=== PATIENT | female | born 1985 | race Caucasian/White ===

== ENCOUNTER 2019-10-07 08:20 | Emergency (ER) | payer OTHER ==
[~2019-10-07] VITALS: Ht 167.6 cm; Wt 157.4 kg
[2019-10-07] MEDS ORDERED: METFORMIN HCL500 MG PO (08:33)
[2019-10-07] MEDS ORDERED: YAZ 28 TABLET1 EACH PO (08:34)
[2019-10-07] MEDS ORDERED: LEXAPRO5 MG PO (08:34)
== END 2019-10-07 19:24 | disposition home or self-care (01) ==
LOC: ER 08:20
DX: K52.89 Other specified noninfective gastroenteritis and colitis (principal)